=== PATIENT | male | born 1965 | race Caucasian/White ===

== ENCOUNTER → 2016-04-10 | Outpatient (CLI) | payer OTHER ==
[~2016-04-10] MED LIST: DIAZ2TAB PO; HYDR-4079 PO; LRS20 PO; MULT-506 PO; NF656 TOP; NRN600 PO
[2016-04-10 17:33] LABS: HEMATOCRIT 43.1 % (42-52); MEAN CELL VOLUME 92.1 fL (80-100); MEAN CORPUSCULAR HEMOGLOBIN 32.1 pg (25-34); MEAN CORPUSCULAR HGB CONC 34.8 g/dl (32-36); MEAN PLATELET VOLUME 9.8 fL (7.4-10.4); PLATELET COUNT 197 K/uL (130-400); RED BLOOD COUNT 4.68 M/uL (4.7-6.1); WHITE BLOOD COUNT 8.56 K/uL (4.8-10.8)
[2016-04-10 17:51] LABS: BLOOD UREA NITROGEN 10 mg/dl (7-18); BUN/CREATININE RATIO 10.2 (10-20); CALCIUM 9.1 mg/dl (8.5-10.1); CARBON DIOXIDE 30 mmol/L (21-32); CHLORIDE 105 mmol/L (98-107); CREATININE 0.97 mg/dl (0.60-1.40); GLUCOSE 86 mg/dl (70-99); POTASSIUM 4.3 mmol/L (3.5-5.1); SODIUM 142 mmol/L (136-145)
--- NOTE | 2016-04-17 06:17 | CODING QUERY NO DIAGNOSIS ---
TREATMENT RENDERED WITHOUT A DIAGNOSIS : 1965 To promote full compliance with coding requirements relating to patient care, physician participation is requested in all cases of sterile instrument technician uncertainty. Please assist us with providing a diagnosis/symptom for the test(s) below: A diagnosis/symptom was not documented on your Order. A valid diagnosis/symptom is required to bill all insurances. Please remember that we are unable to code a diagnosis of rule out, probable, possible, questionable, or suspected. DOS: 04/10/16 Tests that require a diagnosis: * CBC W/O DIFF DIAGNOSIS: * ERYTHROCYTE SEDIMENT DIAGNOSIS: * PARTIAL RENAL PROFILE DIAGNOSIS: Provider Signature: Date: Thank you Akosua Gomez Health Information Management Once completed, please kindly fax back to [phone] For questions please call [phone]
== END | disposition home or self-care (01) ==
LOC: C.LAB 17:11
PROVIDERS: ATTEND Physical Medicine & Rehabilitation
DX: M54.10 Radiculopathy, site unspecified (principal); G82.50 Quadriplegia, unspecified

== ENCOUNTER → 2016-04-14 | Outpatient (CLI) | payer OTHER ==
[~2016-04-14] MED LIST changes: +GADAVIST IV PRN
--- NOTE | 2016-04-14 10:50 | DIAGNOSTIC IMAGING REPORT ---
MRI CERVICAL SPINE COMBO CLINICAL HISTORY: Neck and shoulder pain. History of surgery. TECHNIQUE: Sagittal and axial T1, T2 and STIR images were obtained. Imaging was performed before and after administration of 7 cc of intravenous Gadavist. COMPARISON STUDY: 06/01/2013 There are no suspicious areas of marrow replacement. There is cervical cord atrophy at the C3 and C4 levels. There is increased T2 signal within the cervical cord at the C4 level, consistent with a myelopathy. This remain similar to the preceding study. C2-3: There is no evidence of disc bulge or focal herniation. There is no spinal stenosis. There is right-sided foraminal narrowing.. C3-4: There are postsurgical changes of an anterior cervical discectomy and anterior spinal fusion. There is no recurrent disc herniation. There is no spinal or foraminal stenosis. C4-5: There is a mild circumferential disc bulge. There is mild spinal stenosis. There is right-sided foraminal spurring with right-sided foraminal stenosis. C5-6 :There are no disc bulges or focal herniations. There is no spinal or foraminal stenosis. C6-7: There is a circumferential disc bulge. There is right-sided foraminal spurring with right-sided foraminal stenosis. C7-T1: There is no evidence of disc bulge or focal herniation. There is no evidence of spinal or foraminal stenosis. Postcontrast images reveal no pathologically enhancing masses. IMPRESSION: 1. No significant change from the prior 2013 study 2. Postsurgical changes of the C3-4 anterior cervical discectomy and fusion 3. Stable cervical cord atrophy the C3 and C4 levels with areas of cervical cord myelopathy 4. Multilevel degenerative changes. Mild spinal stenosis the C4-5 level. Right-sided foraminal stenosis the C2-3, C4-5, and C6-7 levels. Electronically signed by: Wyatt Hahn M.D. 04/14/2016 10:49 AM Dictated Date/Time: 04/14/2016 10:40 AM
== END | disposition home or self-care (01) ==
LOC: C.MRIBC 09:13
PROVIDERS: ATTEND Physical Medicine & Rehabilitation
DX: M54.2 Cervicalgia (principal); M25.519 Pain in unspecified shoulder

== ENCOUNTER → 2016-12-06 | Outpatient (CLI) | payer OTHER ==
[~2016-12-06] MED LIST changes: -GADAVIST IV PRN
--- NOTE | 2016-12-06 08:00 | DIAGNOSTIC IMAGING REPORT ---
MRI LUMBAR SPINE W/O CONTRAST CLINICAL HISTORY: Back and right inguinal pain. TECHNIQUE: Sagittal and axial T1, T2 and STIR images were obtained. COMPARISON STUDY: June 22, 2012 OBSERVATIONS: There are progressive degenerative endplate signal changes at the L3-4 level. L1-2: There is a mild circumferential disc bulge. There is a tiny annular fissure. There is mild spinal canal narrowing. There is no significant foraminal narrowing. L2-3: There is a minimal circumferential disc bulge. There is slight flattening of the anterior thecal sac. There is no significant foraminal narrowing. L3-4: There is a circumferential disc bulge and tiny central disc protrusion. There is mild spinal stenosis. There is bilateral foraminal narrowing. L4-5: No disc protrusions or extrusions. No evidence of spinal canal or neural foraminal compromise. L5-S1: There is an annular fissure. There is no significant spinal stenosis. There is facet joint arthropathy. There is mild right-sided foraminal narrowing. The conus medullaris and cauda equina appear normal. IMPRESSION: 1. Multilevel spondylitic changes. Mild spinal canal narrowing at the L1-2, L2-3, and L3-4 levels. Bilateral foraminal narrowing at the L3-4 level, and mild right-sided foraminal narrowing at the L5-S1 level. Degenerative changes are only minimally progressive when compared the prior 2012 study. Electronically signed by: Wyatt Hahn M.D. 12/06/2016 7:59 AM Dictated Date/Time: 12/06/2016 7:52 AM
== END | disposition home or self-care (01) ==
LOC: C.MRI 07:02
PROVIDERS: ATTEND Physical Medicine & Rehabilitation
DX: R10.30 Lower abdominal pain, unspecified (principal); M48.061 Spinal stenosis, lumbar region without neurogenic claudication

== ENCOUNTER → 2017-09-29 | Day surgery (SDC) | payer OTHER ==
[2017-08-30 14:00] VITALS: Ht 182.9 cm; Wt 68.2 kg
[~2017-09-29] VITALS: Ht 182.9 cm; Wt 68.2 kg
[~2017-09-29] MED LIST changes: +ASPI81TA28 PO; +BACL10TA PO; +DIAZ-165 PO; -DIAZ2TAB PO; +EpHEDrine SULFATE 50MG/5ML SYR ONE; +GABA-113 PO; +LIDOCAINE HCL 2% 2 ML VIAL (20MG/ML) ONE; +LIDOCAINE PATCH TOP; -LRS20 PO; -NF656 TOP; -NRN600 PO; +PHENYLEPHRINE 100MCG/ML 5ML SYR ONE; +PROPOFOL IV EMULSION 10 MG/ML 20 ML VIAL ONE; +SENN-65 PO; +TRMO2580 TOP
--- NOTE | 2017-09-29 14:23 | Endo History and Physical ---
History & Physical Date of Service: Sep 29, 2017. Chief Complaint: Screening Referring Physician: Sai Encarnacion History of Present Illness For colonoscopy Past Surgical History Hx Cardiac Surgery: No Hx Internal Defibrillator: No Hx Pacemaker: No Hx Abdominal Surgery: No Hx of Implantable Prosthesis: No Hx Post-Op Nausea and Vomiting: No Hx Cancer Surgery: No Hx Thoracic Surgery: No Hx Orthopedic: Yes (C3-C4 FUSION) Hx Urinary Tract Surgery: No Family History None Social History Smoking Status: Never Smoker Hx Substance Use: No ( ) Hx Alcohol Use: Yes (OCC SOCIAL) Allergies Coded Allergies: NO KNOWN DRUG ALLERGIES (Verified Allergy, Unknown, NONE, 08/30/17) Unclassified Drugs (Verified Allergy, Unknown, ALL METALS-RASH WITH CONTACT, 08/30/17) Current Medications Reported Home Medications Medications Dose Route/Sig Max Daily Dose Days Date Category Dose Instructions Triamcinolone Acet 0.025% (Triamcinolone Acetonide (Topic) 0.025 % Oin 1 Appln TOP BID PRN 08/30/17 Reported [Lidocaine Patch] 1 Dose TOP PRN 08/30/17 Reported 5% PATCH Multivitamin (Multivitamins) Tab 1 Tab PO QAM 08/30/17 Reported Senokot S (Senna/Docusate Sodium) 1 Tab Tab 1 Tab PO QPM 08/30/17 Reported Aspirin Ec (Aspirin) 81 Mg Tab 81 Mg PO QAM 08/30/17 Reported [place] 10MG/325MG (Acetaminophen/Hydrocodone Bitart) Tab 1 Tab PO Q4H PRN 08/30/17 Reported PRN PAIN Valium (Diazepam) 5 Mg Tab 7.5 Mg PO HS 08/30/17 Reported Neurontin (Gabapentin) 300 Mg Cap 300 Mg PO QID 08/30/17 Reported Lioresal (Baclofen) 10 Mg Tab 20 Mg PO QID 08/30/17 Reported Vital Signs Weight (Kilograms): 68.18 Height (Feet): 6 Height (Inches): 0 Date Time Temp Pulse Resp B/P (MAP) Pulse Ox O2 Delivery O2 Flow Rate FiO2 09/29/17 13:38 36.6 53 18 114/72 (86) 98 Room Air Physical Exam General Appearance: + pertinent finding (spastic quad) Respiratory/Chest: Respiratory effort: no dyspnea Cardiovascular: Heart Auscultation: RRR Abdomen: Inspection & Palpation: soft Assessment and Plan For screening colonoscopy
--- NOTE | 2017-09-29 14:53 | Discharge Instructions ---
Endoscopy Patient Instructions Date / Procedure(s) Performed Sep 29, 2017. Colonoscopy Allergy Information Coded Allergies: NO KNOWN DRUG ALLERGIES (Verified Allergy, Unknown, NONE, 08/30/17) Unclassified Drugs (Verified Allergy, Unknown, ALL METALS-RASH WITH CONTACT, 08/30/17) Discharge Date / Findings Sep 29, 2017. Melanosis Medication Instructions Stopped Medication(s): Multivitamin last taken on 09/27/17 81mg Aspirin last taken on 09/28/17 Restart Stopped Medication(s): resume meds Reported Home Medications Medications Dose Route/Sig Max Daily Dose Days Date Category Dose Instructions Triamcinolone Acet 0.025% (Triamcinolone Acetonide (Topic) 0.025 % Oin 1 Appln TOP BID PRN 08/30/17 Reported [Lidocaine Patch] 1 Dose TOP PRN 08/30/17 Reported 5% PATCH Multivitamin (Multivitamins) Tab 1 Tab PO QAM 08/30/17 Reported Senokot S (Senna/Docusate Sodium) 1 Tab Tab 1 Tab PO QPM 08/30/17 Reported Aspirin Ec (Aspirin) 81 Mg Tab 81 Mg PO QAM 08/30/17 Reported [place] 10MG/325MG (Acetaminophen/Hydrocodone Bitart) Tab 1 Tab PO Q4H PRN 08/30/17 Reported PRN PAIN Valium (Diazepam) 5 Mg Tab 7.5 Mg PO HS 08/30/17 Reported Neurontin (Gabapentin) 300 Mg Cap 300 Mg PO QID 08/30/17 Reported Lioresal (Baclofen) 10 Mg Tab 20 Mg PO QID 08/30/17 Reported Provider Instructions Activity Restrictions - No exercising or heavy lifting for 24 hours. - Do not drink alcohol the day of the procedure. - Do not drive a car or operate machinery until the day after the procedure. - Do not make any important decisions or sign important papers in 24 hours after the procedure. Following Day: - Return to full activity which may include returning to work/school. Diet Start your diet with liquids and light foods (jello, soup, juice, toast). Then eat your usual diet if not nauseated. Treatment For Common After Affects For mild abdominal pain, bloating, or excessive gas: - Rest - Eat lightly - Lie on right side Follow-Up Information Follow-up with Sai Encarnacion as scheduled Anesthesia Information What You Should Know You have had a procedure that required some medicine to reduce anxiety and discomfort. This treatment is called moderate sedation. After receiving the treatment, you may be sleepy, but you will be able to breathe on your own. The effects of the treatment may last for several hours. Follow these instructions along with Activity/Diet recommendations noted above: * Do NOT do anything where dizziness or clumsiness would be dangerous. * Rest quietly at home today, then you can be up and about tomorrow. * Have a responsible person stay with you the rest of today. * You may have had an I.V. today. If so, you may take the dressing off later today. Recommendations Call your doctor if: * Trouble breathing * Continuous vomiting for more than 24 hours * Temperature above 101 degrees * Severe abdominal pain or bloating * Pain not relieved by pain medicine ordered * There is increased drainage or redness from any incision * A large amount of rectal bleeding greater than 2-3 tablespoons. (If you had a polyp/s removed or have hemorrhoids, a small amount of blood - from the rectum is to be expected.) * You have any unanswered questions or concerns. IN THE EVENT OF A SERIOUS EMERGENCY, GO TO THE NEAREST EMERGENCY ROOM Your discharge instructions were prepared by provider Shiv Burden. Patient Instructions Signature Page Yandel Alamo Patient (or Guardian) Signature/Date: I have read and understand the instructions given to me by my caregivers. Caregiver/RN/Doctor Signature/Date: The above-named patient and/or guardian has received patient instructions on this date. + Original Patient Signature Page (only) stays with chart. Please make copy for patient.
--- NOTE | 2017-09-29 14:56 | GI REPORT ---
Patient Name: Yandel Alamo Procedure Date: 09/29/2017 2:02 PM Date of : 1965 Admit Type: Outpatient Age: 52 Gender: Male Attending MD: Shiv Burden MD Procedure: Colonoscopy Providers: Shiv Burden MD Referring MD: Sai Encarnacion Indications: Screening for colorectal malignant neoplasm Medicines: Propofol total dose 300 mg IV, Lidocaine 40 mg IV Complications: No immediate complications. Estimated Blood Loss: Estimated blood loss: none. Procedure: Pre-Anesthesia Assessment: - Prior to the procedure, a History and Physical was performed, and patient medications, allergies and sensitivities were reviewed. The patient's tolerance of previous anesthesia was reviewed. - The risks and benefits of the procedure and the sedation options and risks were discussed with the patient. All questions were answered and informed consent was obtained. After I obtained informed consent, the scope was passed under direct vision. Throughout the procedure, the patient's blood pressure, pulse, and oxygen saturations were monitored continuously. The scope was introduced through the anus and advanced to the cecum, identified by appendiceal orifice and ileocecal valve. The colonoscopy was performed without difficulty. The patient tolerated the procedure well. The quality of the bowel preparation was excellent. Findings: A diffuse area of mild melanosis was found in the cecum. Impression: - Melanosis in the colon. - No specimens collected. Recommendation: - Discharge patient to home (ambulatory). - Continue present medications. - Repeat colonoscopy in 10 years for screening purposes. - Return to primary care physician PRN. Shiv Burden M.D. Shiv Burden MD 09/29/2017 2:55:44 PM This report has been signed electronically. Note Initiated On: 09/29/2017 2:02 PM Number of Addenda: 0 I attest to the content of the Intraoperative Record and orders documented therein, exceptions below {[id number]}
[2017-09-29 15:26] VITALS: BP 106/59; PULSE 52; O2SAT 100
--- NOTE | 2017-09-29 15:35 | Anesthesiology Progress Note ---
Anesthesia Post Op Note Date & Time Sep 29, 2017 at 15:35 Vital Signs Pain Intensity: 0 Vital Signs Past 12 Hours Date Time Temp Pulse Resp B/P (MAP) Pulse Ox O2 Delivery O2 Flow Rate FiO2 09/29/17 15:26 52 18 106/59 (75) 100 Room Air 09/29/17 15:11 54 18 119/62 (81) 100 Room Air 09/29/17 14:56 55 13 111/72 (85) 100 Room Air 09/29/17 13:38 36.6 53 18 114/72 (86) 98 Room Air Notes Mental Status: alert / awake / arousable, participated in evaluation Pt Amnestic to Procedure: Yes Nausea / Vomiting: adequately controlled Pain: adequately controlled Airway Patency, RR, SpO2: stable & adequate BP & HR: stable & adequate Hydration State: stable & adequate Anesthetic Complications: no major complications apparent
== END | disposition home or self-care (01) ==
LOC: C.GI 12:59
PROVIDERS: ATTEND Internal Medicine Gastroenterology
DX: Z12.11 Encounter for screening for malignant neoplasm of colon (principal); K63.89 Other specified diseases of intestine; Z98.1 Arthrodesis status; Z79.82 Long term (current) use of aspirin